=== PATIENT | male | born 1995 | race Caucasian/White ===

== ENCOUNTER 2020-03-04 12:11 | Emergency (ER) | payer MEDICAID, SELFPAY ==
[2020-03-04 12:18] VITALS: BP 139/71; PULSE 62; RESP 18; TEMP 36.7; O2SAT 99; BMI 29.2
== END 2020-03-04 14:13 | disposition left against medical advice (07) ==
PROVIDERS: Emergency Provider Emergency Medicine; PCP Internal Medicine
DX: M25.579 Pain in unspecified ankle and joints of unspecified foot (principal)
CPT/HCPCS: 99281; 99282

== ENCOUNTER 2020-05-14 16:25 | Emergency (ER) | payer MEDICAID, SELFPAY ==
--- NOTE | 2020-05-14 | ECG_ITS ---
Test Reason : DIZNESS Blood Pressure : / mmHG Vent. Rate : 096 BPM Atrial Rate : 096 BPM P-R Int : 148 ms QRS Dur : 074 ms QT Int : 346 ms P-R-T Axes : 071 039 053 degrees QTc Int : 437 ms Normal sinus rhythm Normal ECG No previous ECGs available Referred By: Ishmael Tay Electronically Signed By:BIENVENIDO LEVINE
[2020-05-14 16:45] VITALS: BP 144/67; PULSE 105; RESP 20; TEMP 36.6; O2SAT 97
[2020-05-14 17:47] VITALS: BMI 38.3
--- NOTE | 2020-05-14 17:58 | ED_ITS ---
HPI - General Adult General Chief complaint: Dizziness Stated complaint: dizziness Time Seen by Provider: 05/14/20 17:52 Source: patient Mode of arrival: ambulatory Limitations: no limitations History of Present Illness HPI narrative: Patient with multiple complaints poor sleep in the night feels dizzy when he stands up asking for STD testing used to be taking sertraline in the past but not taking anymore Related Data Previous Rx's Medication Instructions Recorded lorazepam [Ativan] 0.5 mg PO BEDTIME PRN #7 tab 05/14/20 Allergies Allergy/AdvReac Type Severity Reaction Status Date / Time Sulfa (Sulfonamide Allergy Mild HIVES Unverified 11/12/19 19:43 Antibiotics) [SULFA (SULFONAMIDE ANTIBIOTICS)] NSAIDS (Non-Steroidal AdvReac Intermediate AFFECTS Unverified 11/12/19 19:43 Anti-Inflamma LIVER [NSAIDS (NON-STEROIDAL ENZYMES ANTI-INFLAMMA] Review of Systems Review of Systems: Constitutional : No Weight loss, No Fever, No Chills ENT/Mouth : No sore throat, No Rhinorrhea Eyes: No Eye Pain, No Swelling Cardiovascular : No Chest Pain, no palpitations Respiratory : No Cough, No Sputum, no shortness of breath Gastrointestinal : no Nausea, No Vomiting, No Diarrhea, No abdominal Pain, no black stools Genitourinary : No Dysuria, No Urinary Frequency Musculoskeletal : No joint pain, No Myalgias, No Joint Swelling Skin : No Skin Lesions, No rash Neuro : No Weakness, No Numbness, + Dizziness, No Headache Psych : +Anxiety/Panic, No Depression Heme/Lymph: No Bruising, No Lymphadenopathy Endocrine : No Polyuria, No Polydipsia All other systems reviewed and are negative [facility] Past Medical History Medical History Appendicitis Mandibular fracture No known health problems Social History Social History Advance Directives: No Advance Directives Information Provided: No Physical Exam Vital Signs: Vital Signs: Last Vital Signs Temp 97.9 F 05/14/20 16:45 Pulse 105 H 05/14/20 16:45 Resp 20 05/14/20 16:45 BP 144/67 H 05/14/20 16:45 Pulse Ox 97 05/14/20 16:45 Body Mass Index 38.3 Appearance: Alert. Oriented X3. No acute distress. Eyes: Pupils equal, round and reactive to light. ENT: Pharynx normal. Neck: Normal inspection. Neck supple. CVS: Normal heart rate and rhythm. Pulses normal. Respiratory: No respiratory distress. Breath sounds normal. Abdomen: Soft and nontender. Bowel sounds are present, no mass palpable, no CVA tenderness Skin: Skin warm and dry. Normal skin color. Normal skin turgor. Extremities: No lower extremity edema. Neuro: Oriented X 3. No motor deficit. No sensory deficit. Medical Decision Making MDM Narrative Medical decision making narrative: Patient symptoms nonspecific likely with anxiety normal orthostatic, will discharge patient home Discharge Plan Discharge Clinical Impression: Weakness, Anxiety Patient Disposition: Home, Self-Care Instructions: Anxiety (ED) Prescriptions: New lorazepam [Ativan] 0.5 mg tablet 0.5 mg PO BEDTIME PRN (Reason: anxiety) Qty: 7 RF: 0
[2020-05-14 19:02] VITALS: BP 127/57; PULSE 69
[2020-05-14 19:03] VITALS: BP 128/87; BP 142/65; PULSE 72; PULSE 89; O2SAT 98
[2020-05-15 09:06] LABS: CT PCR NOT DETECTED (Not Detect.); NG PCR NOT DETECTED (Not Detect.)
== END 2020-05-14 19:11 | disposition home or self-care (01) ==
PROVIDERS: Emergency Provider Internal Medicine
DX: R42 Dizziness and giddiness (principal); R53.1 Weakness; F41.9 Anxiety disorder, unspecified; Z11.3 Encounter for screening for infections with a predominantly sexual mode of transmission
CPT/HCPCS: 87491; 87591; 93005; 99282; 99284

== ENCOUNTER 2020-05-24 08:39 | Emergency (ER) | payer MEDICAID, SELFPAY ==
--- NOTE | ~2020-05-24 | CT_ITS ---
EXAMINATION: CT HEAD WITHOUT CONTRAST CLINICAL INFORMATION: Dizziness. History of Covid inflammation COMPARISON: None TECHNIQUE: Contiguous axial imaging was performed from the skull base to vertex without intravenous administration of contrast. This CT examination was performed using dose optimization techniques as appropriate, variously including the following: *Automated exposure control *Adjustment of mA and/or kV according to patient size (this includes techniques or standardized protocols for targeted exams where dose is matched to indication/reason for exam; i.e. extremities or head) *Use of iterative reconstruction technique DLP: 1563 mGy-cm FINDINGS: There is no evidence of acute intracranial hemorrhage or territorial infarction. No abnormal mass effect or midline shift is seen. Douglas to white matter differentiation is well preserved. No extra-axial fluid collections are identified. The ventricles are normal in size. There is no abnormal attenuation within the brain parenchyma. The osseous structures and soft tissues are normal. The mastoid air cells and visualized portions of the paranasal sinuses are well aerated. CT/CT head/brain wo con IMPRESSION: No acute intracranial process seen.
[2020-05-24 09:07] VITALS: BP 134/61; PULSE 69; RESP 14; TEMP 36.6; O2SAT 99; BMI 31.3
[2020-05-24 10:28] VITALS: BP 145/68; PULSE 55; RESP 16; O2SAT 99
[2020-05-24 10:40] VITALS: BP 146/74; PULSE 64
[2020-05-24 10:41] VITALS: BP 137/84; PULSE 57
[2020-05-24 10:42] VITALS: BP 145/83; PULSE 57
--- NOTE | 2020-05-24 10:56 | ED.DIZZY ---
HPI - Dizziness General Chief Complaint: Dizziness Stated Complaint: dizzy spells Time Seen by Provider: 05/24/20 10:34 Source: patient Mode of arrival: ambulatory Limitations: no limitations History of Present Illness HPI Narrative: 24 y/o male with history of COVID-19 at the end of March presents to the ED with recurrent dizzy spells upon standing for the last 1 month. He states since he recovered from COVID he has had these lightheaded episodes when he goes from sitting to standing. He states when it happens he occasionally feels chest tightness and palpitations and he gets anxious. His symptoms resolve after a few seconds with rest. He also reports increased nasal discharge and sinus pressure with post-nasal drip. No ear pain. No weakness, numbness or tingling. He admits these ongoing symptoms are causing him anxiety and depression. MD elicited complaint: lightheadedness Pertinent past history: other (recent COVID) Onset (ago): month(s) (1) Timing: sudden onset, intermittent and episodic Severity: moderate Description: lightheadedness Context: change in body position History of similar symptoms: Yes Exacerbating factors: movement/ambulation and change in body position Relieving factors: rest and lying down Associated symptoms: nasal congestion Related Data Previous Rx's Medication Instructions Recorded lorazepam [Ativan] 0.5 mg PO BEDTIME PRN #7 tab 05/14/20 amoxicillin-pot clavulanate 1 tab PO BID #14 tab 05/24/20 [Augmentin] Allergies Allergy/AdvReac Type Severity Reaction Status Date / Time Sulfa (Sulfonamide Allergy Mild HIVES Unverified 11/12/19 19:43 Antibiotics) [SULFA (SULFONAMIDE ANTIBIOTICS)] NSAIDS (Non-Steroidal AdvReac Intermediate AFFECTS Unverified 11/12/19 19:43 Anti-Inflamma LIVER [NSAIDS (NON-STEROIDAL ENZYMES ANTI-INFLAMMA] Review of Systems Review of Systems: Constitutional: No Fever, No Chills ENT/Mouth: No sore throat, + Rhinorrhea, No Swallowing Difficulty Eyes: No Eye Pain, No Swelling, No Redness Cardiovascular: + Chest tightness, No SOB, No Orthopnea, No Edema Respiratory: No Cough, No Sputum, No Wheezing, No dyspnea Gastrointestinal: No Nausea, No Vomiting, No Diarrhea, No abdominal Pain, No Hematochezia, No Melena Genitourinary: No Dysuria, No Urinary Frequency, No Hematuria Musculoskeletal: No joint pain, No Myalgias Skin: No Skin Lesions, No rash Neuro: No Weakness, No Numbness, + Dizziness, No Headache Psych: + Anxiety/Panic, + Depression Heme/Lymph: No Bruising, No Lymphadenopathy Endocrine: No Polyuria, No Polydipsia PMF Past Medical History Medical History Appendicitis Mandibular fracture No known health problems Social History Social History Smoked in Last 30 Days: No Use of substances other than those prescribed or required for medical reasons: No Advance Directives: Yes Advance Directives Information Provided: Yes Advance Directives on File: No Physical Exam Vital Signs: Vital Signs: Last Vital Signs Temp 98 F 05/24/20 09:07 Pulse 57 05/24/20 10:42 Resp 16 05/24/20 10:28 BP 145/83 H 05/24/20 10:42 Pulse Ox 99 05/24/20 10:28 Body Mass Index 31.3 Appearance: Alert. Oriented X3. No acute distress. Eyes: Pupils equal, round and reactive to light. EOMI, no nystagmus. ENT: Pharynx normal. Neck: Normal inspection. Neck supple. CVS: Normal heart rate and rhythm. Pulses normal. Respiratory: No respiratory distress. Breath sounds normal. Abdomen: Soft and nontender. +BS x4 Skin: Skin warm and dry. Normal skin color. Normal skin turgor. No rashes. Extremities: No lower extremity edema. Negative Stephanie's sign. Neuro: Oriented X 3. No motor deficit. No sensory deficit. Steady gait. Strength equal and symmetrical throughout, normal finger to nose and heel to avilez Course Course Course Narrative: 24 y/o male with recent COVID-19 1 month ago presenting with episodic lightheadedness and dizziness that have been happening since. He also reports symptoms of sinusitis. TMs are normal. Does not sound consistent with vertigo. He has a non-focal neuro examination with NIH of 0. Given recent COVID will obtain CT head, doubt CVA. will get orthostatic vitals and basic lab workup. Reevaluation(s) Reevaluation #1: Workup is negative. Orthostatics negative. He continues to be appear well, be symptom free here. There is a question whether this is exacerbated by acute sinusitis so will treat with PO abx and refer to ENT. This also could be due to effects of COVID-19. Etiology unclear. Will have him follow up with Neurology if symptoms persist. Stable for discharge from the ER at this time. MDM - Dizziness Differential Diagnosis Differential diagnosis: Likely adverse reaction to drug, benign paroxysmal positional vertigo, orthostatic hypotension, vertebral basilar insufficiency, cerebrovascular accident, acute vestibular neuronitis and transient cerebral ischemia Medical Records Attestation: I reviewed the patient's medical records. Lab Data Attestation: I reviewed the patient's lab results. Result diagrams: 05/24/20 10:57 05/24/20 10:57 Labs: Lab Results 05/24/20 05/24/20 05/24/20 Range/Units 10:57 10:57 11:46 WBC 6.1 (4.8-10.8) X10*3/uL RBC 5.62 (4.60-5.80) X10*6/uL Hgb 17.1 (14.0-18.0) g/dl Hct 50.2 (42-52) % MCV 89.3 (80-98) fL MCH 30.4 (27.0-33.0) pg MCHC 34.1 (31.0-36.0) g/dl RDW 12.0 (11.0-16.0) % Plt Count 248 (160-400) X10*3/uL MPV 8.9 L (9.4-12.4) fL Immature Gran % (Auto) 0.3 (0.0-0.4) % Neut % (Auto) 47.5 (45-73) % Lymph % (Auto) 39.8 (20-40) % [place] % (Auto) 9.6 (2-11) % Eos % (Auto) 2.0 (0-4) % Baso % (Auto) 0.8 (0-2) % Lymph # (Auto) 2.4 (1.2-4.9) X10*3/uL [place] # (Auto) 0.6 (0.1-1.2) X10*3/uL Eos # (Auto) 0.1 (0.0-0.4) X10*3/uL Baso # (Auto) 0.1 (0.0-0.2) X10*3/uL Abs Immat Gran (auto) 0.02 (0.00-0.03) X10*3/uL Absolute Neuts (auto) 2.9 (2.0-8.3) X10*3/uL Absolute Nucleated RBC 0.000 (0.0-0.012) X10*3/uL Nucleated RBC % (auto) 0.0 (0.0-0.2) /100WBC Sodium 139 (135-145) mmol/L Potassium 4.1 (3.3-5.1) mmol/L Chloride 103 (96-108) mmol/L Carbon Dioxide 25 (22-29) mmol/L Anion Gap 15 (12-20) BUN 12 (9-16) mg/dL Creatinine 1.12 (0.5-1.4) mg/dL Estim Creat Clear Calc 122.5 Estimated GFR > 60 Random Glucose 81 (60-115) mg/dL Calcium 9.7 (8.4-10.2) mg/dL Magnesium 2.1 (1.6-2.6) mg/dL Total Bilirubin 0.9 (0.0-1.0) mg/dL Direct Bilirubin 0.3 (0.0-0.5) mg/dL AST 32 (5-37) U/L ALT 29 (0-40) U/L Alkaline Phosphatase 53 (39-117) U/L Total Protein 8.1 H (6.5-8.0) g/dL Albumin 4.9 (3.5-5.0) g/dL Urine Opiates Screen Not Detected (Not Detect) Ur Barbiturates Screen Not Detected (Not Detect) Ur Phencyclidine Scrn Not Detected (Not Detect) Ur Amphetamines Screen Not Detected (Not Detect) U Benzodiazepines Scrn Not Detected (Not Detect) Urine Cocaine Screen Not Detected (Not Detect) U Marijuana (THC) Screen Not Detected (Not Detect) Critical Care Time Critical Care Time Critical Care Time: No Discharge Plan Discharge Clinical Impression: Dizziness Sinusitis Qualifiers: Sinusitis location: maxillary Chronicity: acute Recurrence: non-recurrent Qualified Code(s): J01.00 - Acute maxillary sinusitis, unspecified Patient Disposition: Home, Self-Care Instructions: Sinusitis (ED), Lightheadedness (ED) Additional Instructions: Your workup today in the ER was normal. Your blood work and CT scan were normal. You are being treated for possible sinus infection. Continue to use Flonase. Rest and stay hydrated, drink plenty of water. When you change positions, do so slow to help decrease your lightheadness. Recommend following up with ENT doctor. Recommend following up with your Primary Care doctor. If you have persisting lightheadedness follow up with the Neurology doctor. Prescriptions: New amoxicillin-pot clavulanate [Augmentin] 875-125 mg tablet 1 tab PO BID Qty: 14 RF: 0 No Action lorazepam [Ativan] 0.5 mg tablet 0.5 mg PO BEDTIME PRN (Reason: anxiety) Qty: 7 RF: 0 Referrals: Alicia Varner MD [Physician] - 1 week (chronic dizziness post COVID) Edouard Martinez [Physician] - 2 days Discharge Date/Time: 05/24/20 12:29
[2020-05-24 11:18] LABS: MANUAL DIFF FLAG NO
[2020-05-24 11:30] LABS: Basophils Absolute Auto 0.1 X10*3/uL (0.0-0.2); Basophils Percent Auto 0.8 % (0-2); Eosinophils Absolute Auto 0.1 X10*3/uL (0.0-0.4); Hematocrit 50.2 % (42-52); Hemoglobin 17.1 g/dl (14.0-18.0); Imm Gran Abs Auto 0.02 X10*3/uL (0.00-0.03); Imm Gran Pct Auto 0.3 % (0.0-0.4); Lymphocytes Absolute Auto 2.4 X10*3/uL (1.2-4.9); Lymphocytes Percent Auto 39.8 % (20-40); Mean Corpuscular HGB Conc 34.1 g/dl (31.0-36.0); Mean Corpuscular Hemoglobin 30.4 pg (27.0-33.0); Mean Corpuscular Volume 89.3 fL (80-98); Mean Platelet Volume 8.9 fL (9.4-12.4); Monocytes Absolute Auto 0.6 X10*3/uL (0.1-1.2); Monocytes Percent Auto 9.6 % (2-11); Neutrophils Absolute Auto 2.9 X10*3/uL (2.0-8.3); Neutrophils Percent Auto 47.5 % (45-73); Platelet Count 248 X10*3/uL (160-400); Red Blood Count 5.62 X10*6/uL (4.60-5.80); White Blood Count 6.1 X10*3/uL (4.8-10.8)
[2020-05-24 11:41] LABS: Alanine Aminotransferase 29 U/L (0-40); Albumin Level 4.9 g/dL (3.5-5.0); Alkaline Phosphatase 53 U/L (39-117); Anion Gap 15 (12-20); Aspartate Amino Transferase 32 U/L (5-37); Bilirubin Direct 0.3 mg/dL (0.0-0.5); Bilirubin Total 0.9 mg/dL (0.0-1.0); Blood Urea Nitrogen 12 mg/dL (9-16); Calcium 9.7 mg/dL (8.4-10.2); Carbon Dioxide 25 mmol/L (22-29); Chloride 103 mmol/L (96-108); Creatinine Clr Calc Pharmacy 122.5; Estimated Glomerular Filt Rate > 60; Glucose Random 81 mg/dL (60-115); Magnesium 2.1 mg/dL (1.6-2.6); Potassium 4.1 mmol/L (3.3-5.1); Sodium 139 mmol/L (135-145); Total Protein 8.1 g/dL (6.5-8.0)
[2020-05-24 12:22] LABS: Amphetamine Screen Urine Not Detected (Not Detect); Barbiturates, Urine Not Detected (Not Detect); Benzodiazepines Screen Urine Not Detected (Not Detect); Cannabinoid Screen Urine Not Detected (Not Detect); Cocaine Screen Urine Not Detected (Not Detect); Opiate Screen Urine Not Detected (Not Detect); Phencyclidine Screen Urine Not Detected (Not Detect)
== END 2020-05-24 12:29 | disposition home or self-care (01) ==
PROVIDERS: Physician Assistant; Emergency Provider Emergency Medicine; PCP Internal Medicine
DX: J01.00 Acute maxillary sinusitis, unspecified (principal); R42 Dizziness and giddiness; Z79.899 Other long term (current) drug therapy; Z86.16 Personal history of COVID-19
CPT/HCPCS: 36415; 70450; 80048; 80076; 80307; 83735; 85025; 99284

== ENCOUNTER 2020-06-26 08:16 | Emergency (ER) | payer MEDICAID, SELFPAY ==
[2020-06-26 08:30] VITALS: BP 127/77; PULSE 65; RESP 18; TEMP 36.9; O2SAT 100; BMI 30.8
--- NOTE | 2020-06-26 08:48 | ECG_ITS ---
Test Reason : CHECK CARDIAC STATUS Blood Pressure : / mmHG Vent. Rate : 051 BPM Atrial Rate : 051 BPM P-R Int : 134 ms QRS Dur : 080 ms QT Int : 408 ms P-R-T Axes : 016 017 021 degrees QTc Int : 376 ms Sinus bradycardia Otherwise normal ECG When compared with ECG of 14-MAY-2020 16:33, Vent. rate has decreased BY [address] elevation now present in Lateral leads QT has shortened Referred By: Gwyn Raymond Electronically Signed By:KERWIN ARNDT MD
--- NOTE | 2020-06-26 08:49 | ED.GENADULT ---
HPI - General Adult General Chief complaint: General Medical Stated complaint: confused,sob Time Seen by Provider: 06/26/20 08:47 Source: patient Mode of arrival: ambulatory Limitations: no limitations History of Present Illness HPI narrative: 24-year-old male walked into ED for evaluation for shortness of breath, generalized weakness,. Of confusion. 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 Patient otherwise declined fever, coughing. Related Data Previous Rx's Medication Instructions Recorded lorazepam [Ativan] 0.5 mg PO BEDTIME PRN #7 tab 05/14/20 amoxicillin-pot clavulanate 1 tab PO BID #14 tab 05/24/20 [Augmentin] Allergies Allergy/AdvReac Type Severity Reaction Status Date / Time Sulfa (Sulfonamide Allergy Mild HIVES Unverified 11/12/19 19:43 Antibiotics) [SULFA (SULFONAMIDE ANTIBIOTICS)] NSAIDS (Non-Steroidal AdvReac Intermediate AFFECTS Unverified 11/12/19 19:43 Anti-Inflamma LIVER [NSAIDS (NON-STEROIDAL ENZYMES ANTI-INFLAMMA] Review of Systems Review of Systems: All other systems are reviewed and are negative Constitutional: Reports as per HPI and Reports no additional constitutional complaints Eyes: Reports as per HPI and Reports no additional eye complaints Reports system reviewed and no additional complaints, except as documented Cardiovascular: Reports as per HPI and Reports no additional cardiovascular complaints Respiratory: Reports as per HPI and Reports no additional respiratory complaints Gastrointestinal: Reports as per HPI and Reports no additional gastrointestinal complaints Genitourinary: Reports no additional female genitourinary complaints Musculoskeletal: Reports no additional musculoskeletal complaints Skin/Breast: Reports system reviewed and no additional complaints, except as docu Psychiatric: Reports no additional psychiatric complaints Endocrine: Reports no additional endocrine complaints Hematologic/Lymphatic: Reports no additional hematologic/lymphatic complaints Allergic/Immunologic: Reports no additional allergic/immunologic complaints Reports system reviewed and no additional complaints, except as documented and Reports Abnormal speech present [facility] Past Medical History Medical History Appendicitis Mandibular fracture No known health problems Social History Social History Alcohol intake: former Smoking Status: Former smoker Use of substances other than those prescribed or required for medical reasons: No Advance Directives: No Advance Directives Information Provided: No Physical Exam Vital Signs: Vital Signs: Last Vital Signs Temp 97.7 F 06/26/20 11:28 Pulse 58 06/26/20 11:28 Resp 17 06/26/20 11:28 BP 125/62 06/26/20 11:28 Pulse Ox 100 06/26/20 11:28 Body Mass Index 30.8 Vital signs have been reviewed as appeared to be correct. Blood pressure normal. Heart rate normal. Respiration rate normal. Temperature normal. Oxygen saturation normal. Appearance: Alert. Oriented X3. No acute distress. Head: Normal external exam. Normocephalic. Atraumatic. No Garcia signs noted. No raccoon eyes noted Eyes: PERRLA. EOMI. Conjunctiva and sclera normal. Eyelids normal. ENT: TM's Normal. Pharynx normal. Uvula midline. Moist mucous membranes. No trismus noted. No drooling noted. No muffled voice noted. Neck: Normal inspection. Neck supple. FROM. No adenopathy. Thyroid Normal. No meningeal signs. No neck mass noted. CVS: Normal heart rate and rhythm. Heart sound normal. No murmurs noted. Pulses normal throughout. Respiratory: No respiratory distress. Painless inspiration. Breath sounds normal. No wheezes/rales/rhonchi noted. Chest nontender. No accessory muscle usage noted or decreased air movement noted. Abdomen: Soft and nontender. Bowel sounds normal in all 4 quadrants. No distention noted. No organomegaly noted. No visible injury noted. Back: No CVA tenderness. Full range of motion noted. Skin: Skin warm and dry. Normal skin color. Normal skin turgor. No rashes/lesions/lacerations noted. Extremities: No lower extremity edema. Extremities exhibit normal range of motion. Extremities nontender. Neuro: Oriented X 3. No motor deficit. No sensory deficit. Reflexes normal. Course Course Course Narrative: Assessment and plan. 24-year-old male came in with nonspecific generalized weakness, labs/physical exam is unremarkable for abnormalities. Patient was reassured and instructed to follow-up with PCP. Medical Decision Making Lab Data Lab results reviewed: Yes I reviewed the patient's lab results. Result diagrams: 06/26/20 09:24 06/26/20 09:24 Labs: Lab Results 06/26/20 06/26/20 06/26/20 Range/Units 09:24 09:24 09:24 WBC 4.7 L (4.8-10.8) X10*3/uL RBC 5.52 (4.60-5.80) X10*6/uL Hgb 16.8 (14.0-18.0) g/dl Hct 49.5 (42-52) % MCV 89.7 (80-98) fL MCH 30.4 (27.0-33.0) pg MCHC 33.9 (31.0-36.0) g/dl RDW 11.7 (11.0-16.0) % Plt Count 221 (160-400) X10*3/uL MPV 8.6 L (9.4-12.4) fL Immature Gran % (Auto) 0.6 H (0.0-0.4) % Neut % (Auto) 41.9 L (45-73) % Lymph % (Auto) 40.7 H (20-40) % [place] % (Auto) 12.0 H (2-11) % Eos % (Auto) 4.2 H (0-4) % Baso % (Auto) 0.6 (0-2) % Lymph # (Auto) 1.9 (1.2-4.9) X10*3/uL [place] # (Auto) 0.6 (0.1-1.2) X10*3/uL Eos # (Auto) 0.2 (0.0-0.4) X10*3/uL Baso # (Auto) 0.0 (0.0-0.2) X10*3/uL Abs Immat Gran (auto) 0.03 (0.00-0.03) X10*3/uL Absolute Neuts (auto) 2.0 (2.0-8.3) X10*3/uL Absolute Nucleated RBC 0.000 (0.0-0.012) X10*3/uL Nucleated RBC % (auto) 0.0 (0.0-0.2) /100WBC D-Dimer < 200 NG/ML Sodium 141 (135-145) mmol/L Potassium 4.5 (3.3-5.1) mmol/L Chloride 104 (96-108) mmol/L Carbon Dioxide 31 H (22-29) mmol/L Anion Gap 11 L (12-20) BUN 10 (9-16) mg/dL Creatinine 1.05 (0.5-1.4) mg/dL Estim Creat Clear Calc 133.4 Estimated GFR > 60 Random Glucose 96 (60-115) mg/dL Calcium 9.9 (8.4-10.2) mg/dL Total Bilirubin (0.0-1.0) mg/dL Direct Bilirubin (0.0-0.5) mg/dL AST (5-37) U/L ALT (0-40) U/L Alkaline Phosphatase (39-117) U/L Troponin I High Sens (<3.5-35.0) ng/L B-Natriuretic Peptide (<100) pg/mL Total Protein (6.5-8.0) g/dL Albumin (3.5-5.0) g/dL Lipase (8-78) U/L Urine Color Urine Appearance Urine pH (5.0-8.0) Ur Specific [place] (1.005-1.025) Urine Protein (NEG-TRACE) MG/DL Urine Glucose (UA) (NEG) MG/DL Urine Ketones (NEG) MG/DL Urine Blood (NEG) Urine Nitrite (NEG) Ur Leukocyte Esterase (NEG) 06/26/20 06/26/20 06/26/20 Range/Units 09:24 09:24 09:27 WBC (4.8-10.8) X10*3/uL RBC (4.60-5.80) X10*6/uL Hgb (14.0-18.0) g/dl Hct (42-52) % MCV (80-98) fL MCH (27.0-33.0) pg MCHC (31.0-36.0) g/dl RDW (11.0-16.0) % Plt Count (160-400) X10*3/uL MPV (9.4-12.4) fL Immature Gran % (Auto) (0.0-0.4) % Neut % (Auto) (45-73) % Lymph % (Auto) (20-40) % [place] % (Auto) (2-11) % Eos % (Auto) (0-4) % Baso % (Auto) (0-2) % Lymph # (Auto) (1.2-4.9) X10*3/uL [place] # (Auto) (0.1-1.2) X10*3/uL Eos # (Auto) (0.0-0.4) X10*3/uL Baso # (Auto) (0.0-0.2) X10*3/uL Abs Immat Gran (auto) (0.00-0.03) X10*3/uL Absolute Neuts (auto) (2.0-8.3) X10*3/uL Absolute Nucleated RBC (0.0-0.012) X10*3/uL Nucleated RBC % (auto) (0.0-0.2) /100WBC D-Dimer NG/ML Sodium (135-145) mmol/L Potassium (3.3-5.1) mmol/L Chloride (96-108) mmol/L Carbon Dioxide (22-29) mmol/L Anion Gap (12-20) BUN (9-16) mg/dL Creatinine (0.5-1.4) mg/dL Estim Creat Clear Calc Estimated GFR Random Glucose (60-115) mg/dL Calcium (8.4-10.2) mg/dL Total Bilirubin 0.6 (0.0-1.0) mg/dL Direct Bilirubin 0.2 (0.0-0.5) mg/dL AST 29 (5-37) U/L ALT 39 (0-40) U/L Alkaline Phosphatase 55 (39-117) U/L Troponin I High Sens < 3.5 (<3.5-35.0) ng/L B-Natriuretic Peptide < 10 (<100) pg/mL Total Protein 7.4 (6.5-8.0) g/dL Albumin 4.7 (3.5-5.0) g/dL Lipase 32 (8-78) U/L Urine Color YELLOW Urine Appearance CLEAR Urine pH 6.0 (5.0-8.0) Ur Specific [place] 1.010 (1.005-1.025) Urine Protein NEG (NEG-TRACE) MG/DL Urine Glucose (UA) NEG (NEG) MG/DL Urine Ketones NEG (NEG) MG/DL Urine Blood NEG (NEG) Urine Nitrite NEG (NEG) Ur Leukocyte Esterase NEG (NEG) Discharge Plan Discharge Clinical Impression: Generalized weakness Patient Disposition: Home, Self-Care Instructions: Weakness (ED) Prescriptions: No Action lorazepam [Ativan] 0.5 mg tablet 0.5 mg PO BEDTIME PRN (Reason: anxiety) Qty: 7 RF: 0 amoxicillin-pot clavulanate [Augmentin] 875-125 mg tablet 1 tab PO BID Qty: 14 RF: 0 Referrals: Jair Pavon MD [Primary Care Provider] - 2 days Stand Alone Forms: Work/School Release
[2020-06-26 09:31] LABS: MANUAL DIFF FLAG NO
[2020-06-26 09:32] LABS: Basophils Percent Auto 0.6 % (0-2); Eosinophils Absolute Auto 0.2 X10*3/uL (0.0-0.4); Eosinophils Percent Auto 4.2 % (0-4); Hematocrit 49.5 % (42-52); Hemoglobin 16.8 g/dl (14.0-18.0); Imm Gran Abs Auto 0.03 X10*3/uL (0.00-0.03); Imm Gran Pct Auto 0.6 % (0.0-0.4); Lymphocytes Absolute Auto 1.9 X10*3/uL (1.2-4.9); Lymphocytes Percent Auto 40.7 % (20-40); Mean Corpuscular HGB Conc 33.9 g/dl (31.0-36.0); Mean Corpuscular Hemoglobin 30.4 pg (27.0-33.0); Mean Corpuscular Volume 89.7 fL (80-98); Mean Platelet Volume 8.6 fL (9.4-12.4); Monocytes Absolute Auto 0.6 X10*3/uL (0.1-1.2); Neutrophils Percent Auto 41.9 % (45-73); Platelet Count 221 X10*3/uL (160-400); Red Blood Count 5.52 X10*6/uL (4.60-5.80); Red Cell Distribution Width 11.7 % (11.0-16.0); White Blood Count 4.7 X10*3/uL (4.8-10.8)
[2020-06-26 09:34] LABS: Glucose Urine UA NEG (NEG); Leukocyte Esterase Urine NEG (NEG); Nitrite Urine NEG (NEG); Urine Blood NEG (NEG); Urine Ketones NEG (NEG); Urine Protein NEG (NEG-TRACE)
[2020-06-26 09:41] LABS: Appearance Urine CLEAR; Color Urine YELLOW
[2020-06-26 09:47] LABS: D Dimer < 200 NG/ML
[2020-06-26 09:55] LABS: Anion Gap 11 (12-20); Blood Urea Nitrogen 10 mg/dL (9-16); Calcium 9.9 mg/dL (8.4-10.2); Carbon Dioxide 31 mmol/L (22-29); Chloride 104 mmol/L (96-108); Creatinine Clr Calc Pharmacy 133.4; Estimated Glomerular Filt Rate > 60; Glucose Random 96 mg/dL (60-115); Potassium 4.5 mmol/L (3.3-5.1); Sodium 141 mmol/L (135-145)
[2020-06-26 09:56] LABS: Alanine Aminotransferase 39 U/L (0-40); Albumin Level 4.7 g/dL (3.5-5.0); Alkaline Phosphatase 55 U/L (39-117); Aspartate Amino Transferase 29 U/L (5-37); Bilirubin Direct 0.2 mg/dL (0.0-0.5); Bilirubin Total 0.6 mg/dL (0.0-1.0); Lipase 32 U/L (8-78); Total Protein 7.4 g/dL (6.5-8.0)
[2020-06-26 10:01] LABS: B Type Natriuretic Peptide < 10 pg/mL (<100); Troponin-I High Sensitivity < 3.5 ng/L (<3.5-35.0)
[2020-06-26 11:28] VITALS: BP 125/62; PULSE 58; RESP 17; TEMP 36.5; O2SAT 100
== END 2020-06-26 12:34 | disposition home or self-care (01) ==
PROVIDERS: Emergency Provider Emergency Medicine; PCP Internal Medicine
DX: R53.1 Weakness (principal); Z86.16 Personal history of COVID-19
CPT/HCPCS: 36415; 80048; 80076; 81003; 83690; 83880; 84484; 85025; 85379; 93005; 99283; 99284

== ENCOUNTER 2021-05-23 18:08 | Emergency (ER) | payer MEDICAID, SELFPAY | END 2021-05-23 19:59 | disposition left against medical advice (07) | PROVIDERS: Emergency Provider Emergency Medicine | DX: R42 Dizziness and giddiness (principal); H53.8 Other visual disturbances ==

== ENCOUNTER 2021-05-28 01:54 | Emergency (ER) | payer MEDICAID, SELFPAY ==
--- NOTE | ~2021-05-28 | XR_ITS ---
EXAMINATION: XR ABDOMEN KUB CLINICAL INDICATION: No bowel movement for 3 days COMPARISON: None TECHNIQUE: AP view of the abdomen. FINDINGS: The bowel gas pattern is normal with no evidence of ileus or obstruction. Stool present within the left colon. Transverse and descending colon contain gas without distention. No unusual soft tissue calcifications are noted. The bones are unremarkable. XR/XR KUB IMPRESSION: No evidence of obstruction. Mild constipation.
[2021-05-28 02:03] VITALS: BP 126/86; PULSE 74; RESP 15; TEMP 37; O2SAT 97; BMI 34.8
--- NOTE | 2021-05-28 03:42 | ED.GENADULT ---
HPI - General Adult General Chief complaint: Abdominal Pain Stated complaint: dizziness; unable to defacate x3days Time Seen by Provider: 05/28/21 02:11 Source: patient Mode of arrival: ambulatory History of Present Illness HPI narrative: 25-year-old male without significant past medical history presents with 3 days of inability to have a bowel movement and say that he has felt ?foggy?. 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 Patient did try Mag citrate today with some mild response but still feels constipated. Related Data Home Medications Medication Instructions Recorded Confirmed omeprazole 20 mg capsule,delayed 1 cap PO QAM 05/28/21 05/28/21 release Allergies Allergy/AdvReac Type Severity Reaction Status Date / Time Sulfa (Sulfonamide Allergy Mild HIVES Verified 05/28/21 02:01 Antibiotics) [SULFA (SULFONAMIDE ANTIBIOTICS)] NSAIDS (Non-Steroidal AdvReac Intermediate AFFECTS Verified 05/28/21 02:01 Anti-Inflamma LIVER [NSAIDS (NON-STEROIDAL ENZYMES ANTI-INFLAMMA] Review of Systems Review of Systems: Pertinent positives and negatives as stated in HPI 10 point review of symptoms is otherwise negative PMFSH Past Medical History Source: nursing notes reviewed Medical History Appendicitis Mandibular fracture No known health problems Social History Social History Alcohol intake: former Advance Directives: No Physical Exam ED Vital Signs: Vital Signs - 24 hr 05/28/21 02:03 Temperature 98.6 F Pulse Rate 74 Respiratory Rate 15 Blood Pressure 126/86 Pulse Oximetry 97 BMI result Body Mass Index 34.8 VITAL SIGNS: Reviewed. GENERAL: Well developed, well nourished, in no acute distress. HEAD: Normocephalic/atraumatic EYES: PERRLA, EOMI EARS: Ext canals without abnormality OROPHARYNX: no oral lesions noted, posterior pharynx clear LUNGS: Normal breath sounds. No adventitious sounds or accessory muscle use. SpO2<97> CARDIOVASCULAR: Regular rate and rhythm without noted murmurs ABDOMEN: Soft, non-tender, non-distended with bowel sounds. MUSCULOSKELETAL: No tenderness, deformities, or effusions noted on gross inspection. EXTREMITIES: No cyanosis, clubbing or edema. SKIN: Inspection of the skin reveals no rashes NEUROLOGIC: Alert and oriented x 4. Strength and sensation to light touch were grossly intact x 4. Course Course Course Narrative: 25-year-old male with history and clinical presentation consistent with stress, constipation and no concerning symptoms for infection, anemia in an otherwise healthy male. Discussed bowel regimen with the patient, he acknowledges understanding and understands to return by Saturday if he has been unsuccessful and having regular bowel movements. Discharge Plan Discharge Clinical Impression: Constipation Patient Disposition: Home, Self-Care Instructions: High Fiber Diet (ED), Fleet Enema (ED), Constipation (ED) Additional Instructions: 1. Recommend increasing water intake. 2. Recommend another dose of Mag citrate today as well as MiraLax in the morning (this is available [id number]) and MiraLax again in the evening. Repeat this on Saturday as well if you have not started having regular bowel movements. 3. Recommend calling your primary care provider on Saturday morning as well. Return to the ER for worsening symptoms. Prescriptions: No Action omeprazole 20 mg capsule,delayed release(DR/EC) 1 cap PO QAM 0RF Referrals: Cecil Slater MD [Primary Care Provider] - 2 days
[2021-05-28 04:00] VITALS: BP 123/73; PULSE 61; RESP 16; O2SAT 96
== END 2021-05-28 04:22 | disposition home or self-care (01) ==
PROVIDERS: Emergency Provider Student in an Organized Health Care Education/Training Program; PCP Internal Medicine
DX: R10.9 Unspecified abdominal pain (principal); R42 Dizziness and giddiness; K59.00 Constipation, unspecified; Z79.899 Other long term (current) drug therapy
CPT/HCPCS: 74018; 99284

== ENCOUNTER 2021-08-17 00:46 | Emergency (ER) | payer MEDICAID, SELFPAY ==
[2021-08-17 00:57] VITALS: BP 135/83; PULSE 83; RESP 16; TEMP 36.4; O2SAT 97; BMI 33.5
--- NOTE | 2021-08-17 01:15 | ED_ITS ---
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 He states immediately after working in the brush he went home, showered and did not have any lesions on his legs. He woke up the next day with intense, itchy red rash on the front of both of his legs and his feet. He states the rash has been spitting up past his knees and is unbearably itchy. He has been using topical calamine lotion with no relief. No other lesions on any parts of the body. No fever or chills. No involvement of the palms, soles, mouth. MD complaint: rash Onset (ago): day(s) (3) Tetanus up to date: unsure Location: LLE, RLE, L foot and R foot Severity: moderate Severity scale (1-10): 5 Quality: pruritic Pain Consistency: intermittent Relieving factors: none Exacerbating factors: none Context: none Associated symptoms: itching Treatments prior to arrival: OTC topical medication Related Data Home Medications Medication Instructions Recorded Confirmed omeprazole 20 mg capsule,delayed 1 cap PO QAM 05/28/21 05/28/21 release Previous Rx's Medication Instructions Recorded prednisone 50 mg tablet 50 mg PO DAILY #7 tabs 08/17/21 Allergies Allergy/AdvReac Type Severity Reaction Status Date / Time Sulfa (Sulfonamide Allergy Mild HIVES Verified 08/17/21 00:56 Antibiotics) [SULFA (SULFONAMIDE ANTIBIOTICS)] NSAIDS (Non-Steroidal AdvReac Intermediate AFFECTS Verified 08/17/21 00:56 Anti-Inflamma LIVER [NSAIDS (NON-STEROIDAL ENZYMES ANTI-INFLAMMA] Review of Systems Review of Systems: Constitutional: No Fever, No Chills ENT/Mouth: No sore throat, No Swallowing Difficulty Eyes: No Swelling, No Redness Cardiovascular: No Chest Pain, No SOB Respiratory: No Cough, No Sputum, No Wheezing, No dyspnea Gastrointestinal: No Nausea, No Vomiting, No abdominal Pain Musculoskeletal: No joint pain, No Myalgias Skin: No Skin Lesions, + rash Psych: +Anxiety/Panic Heme/Lymph: No Bruising PMFSH Past Medical History Medical History Appendicitis Mandibular fracture No known health problems Social History Social History Alcohol intake: former Advance Directives: No Advance Directives Information Provided: Yes Physical Exam Vital Signs: Vital Signs: Last Vital Signs Temp 97.6 F 08/17/21 00:57 Pulse 83 08/17/21 00:57 Resp 16 08/17/21 00:57 BP 135/83 08/17/21 00:57 Pulse Ox 97 08/17/21 00:57 O2 Del Method 08/17/21 00:57 BMI result Body Mass Index 33.5 Appearance: Alert. Oriented X3. No acute distress. HEENT: normal inspection CVS: Normal heart rate and rhythm. Pulses normal. Respiratory: No respiratory distress. Skin: Skin warm and dry. Normal skin color. Normal skin turgor. Extremities: Bilateral lower extremities with scattered areas of erythematous, weeping, small little blister like lesions on the anterior lower legs, tops of the feet, and scattered areas of the distal thighs. No surrounding erythema, warmth, evidence of infection. Neuro: Oriented X 3. Grossly normal, nonfocal Course Course Course Narrative: 25-year-old male presents to the ER with a itchy, red rash to his bilateral lower legs after working in the [employer] 2 days ago. Exam is consistent with poison kaity dermatitis. Will prescribe oral steroids. We also discussed other measures to help with itching including oral antihistamines, topical Benadryl and hydrocortisone as well. He is stable for discharge home. Critical Care Time Critical Care Time Critical Care Time: No Discharge Plan Discharge Clinical Impression: Poison kaity dermatitis Patient Disposition: Home, Self-Care Instructions: Poison Kaity (ED) Additional Instructions: Take the prescribed steroid as directed, complete the entire course. Do your best not to itch the rash. For itchy can use [id number] hydrocortisone cream to the area as needed 2- 3 times per day. You can also try [id number] Benadryl spray as needed for itching. Recommend Benadryl orally 50 mg every 6-8 hours as needed for itching as well. This can make you drowsy. If you develop new or worsening symptoms call 911 or come back to the ER for further evaluation. Prescriptions: New prednisone 50 mg tablet 50 mg PO DAILY Qty: 7 0RF No Action omeprazole 20 mg capsule,delayed release(DR/EC) 1 cap PO QAM
[2021-08-17] MEDS: predniSONE 20 MG TABLET 60 MG PO (01:39)
== END 2021-08-17 01:45 | disposition home or self-care (01) ==
PROVIDERS: Emergency Provider Emergency Medicine Emergency Medical Services
DX: L23.7 Allergic contact dermatitis due to plants, except food (principal)
CPT/HCPCS: 99282; 99283

== ENCOUNTER 2022-02-04 22:14 | Emergency (ER) | payer MEDICAID, SELFPAY ==
[2022-02-04 22:16] VITALS: BP 140/76; PULSE 75; RESP 18; TEMP 36.3; O2SAT 98; BMI 34.8
== END 2022-02-05 01:38 | disposition left against medical advice (07) ==
PROVIDERS: Emergency Provider Emergency Medicine; PCP Nurse Practitioner Family
DX: R10.9 Unspecified abdominal pain (principal); R53.1 Weakness
CPT/HCPCS: 99281

== ENCOUNTER 2022-05-19 08:46 | Emergency (ER) | payer MEDICAID, SELFPAY ==
[2022-05-19 08:58] VITALS: BP 146/90; PULSE 85; RESP 18; TEMP 36.9; O2SAT 100; BMI 29.9
--- NOTE | 2022-05-19 09:28 | ED_ITS ---
HPI - Male Genitourinary General Chief complaint: Urogenital-Male Stated complaint: std check Time Seen by Provider: 05/19/22 09:13 History of Present Illness HPI Narrative: Patient with the complaint that he had unprotected sex with a woman and then a friend of her says she might have some kind of STD he is not sure what, he is not aware of her having any symptoms or known STD and he has no burning on urination no lesions no sores no dysuria and feels normal Related Data Home Medications Medication Instructions Recorded Confirmed omeprazole 20 mg capsule,delayed 1 cap PO QAM 05/28/21 05/28/21 release Previous Rx's Medication Instructions Recorded prednisone 50 mg tablet 50 mg PO DAILY #7 tabs 08/17/21 Allergies Allergy/AdvReac Type Severity Reaction Status Date / Time Sulfa (Sulfonamide Allergy Mild HIVES Verified 02/04/22 22:16 Antibiotics) [SULFA (SULFONAMIDE ANTIBIOTICS)] NSAIDS (Non-Steroidal AdvReac Intermediate AFFECTS Verified 02/04/22 22:16 Anti-Inflamma LIVER [NSAIDS (NON-STEROIDAL ENZYMES ANTI-INFLAMMA] [facility] Past Medical History Source: nursing notes reviewed Medical History Appendicitis Mandibular fracture No known health problems Social History Social History Alcohol intake: former Advance Directives: No Advance Directives Information Provided: No Physical Exam Vital Signs: Vital Signs: Last Vital Signs Temp 98.5 F 05/19/22 08:58 Pulse 85 05/19/22 08:58 Resp 18 05/19/22 08:58 BP 146/90 H 05/19/22 08:58 Pulse Ox 100 05/19/22 08:58 O2 Del Method Room Air 05/19/22 08:58 BMI result Body Mass Index 29.9 General appearance no acute distress Head is normocephalic atraumatic Neck is supple Respiratory no distress Abdomen soft nontender Genital exam no lesions Extremities full range of motion x4 Skin no rash Course Course Course Narrative: Patient heard a recent partner may have an STD and wants to be checked so gonorrhea chlamydia testing was done here and he is referred to clinic for HIV and any further testing, he is asymptomatic, UA was normal with no white cells Medical Decision Making Lab Data Labs: Lab Results 05/19/22 Range/Units 09:53 Urine Color Yellow Urine Appearance Clear Urine pH 6.5 (5.0-9.0) Ur Specific [place] <= 1.005 (1.005-1.025) Urine Protein Negative (Neg-Trace) mg/dL Urine Glucose (UA) Negative (Negative) mg/dL Urine Ketones Trace (Negative) mg/dL Urine Blood Negative (Negative) Urine Nitrite Negative (Negative) Ur Leukocyte Esterase Negative (Negative) Discharge Plan Discharge Clinical Impression: Possible exposure to STD Patient Disposition: Home, Self-Care Additional Instructions: You have no symptoms of any sexually transmitted disease right now and it is not certain that your partner had an STD so we are not treating anything right now We will call you with gonorrhea or chlamydia testing is positive Follow with clinic, your given the paper for HIV testing and any further testing Prescriptions: No Action omeprazole 20 mg capsule,delayed release(DR/EC) 1 cap PO QAM prednisone 50 mg tablet 50 mg PO DAILY Qty: 7 0RF
[2022-05-19 10:10] LABS: Appearance Urine Clear; Color Urine Yellow; Glucose Urine UA Negative (Negative); Leukocyte Esterase Urine Negative (Negative); Nitrite Urine Negative (Negative); PH 6.5 (5.0-9.0); Specific Gravity - Urine <= 1.005 (1.005-1.025); Urine Blood Negative (Negative); Urine Ketones Trace mg/dL (Negative); Urine Protein Negative (Neg-Trace)
[2022-05-19 12:06] LABS: CT PCR NOT DETECTED (Not Detect.); NG PCR NOT DETECTED (Not Detect.)
== END 2022-05-19 10:32 | disposition home or self-care (01) ==
PROVIDERS: Emergency Provider Emergency Medicine; PCP Nurse Practitioner Family
DX: Z20.2 Contact with and (suspected) exposure to infections with a predominantly sexual mode of transmission (principal)
CPT/HCPCS: 0353U; 81003; 99283

== ENCOUNTER 2022-07-16 03:52 | Emergency (ER) | payer OTHER, SELFPAY ==
--- NOTE | 2022-07-16 | ECG_ITS ---
Test Reason : PALPITATIONS Blood Pressure : / mmHG Vent. Rate : 075 BPM Atrial Rate : 075 BPM P-R Int : 160 ms QRS Dur : 086 ms QT Int : 380 ms P-R-T Axes : 041 016 027 degrees QTc Int : 424 ms Normal sinus rhythm Normal ECG When compared with ECG of 26-JUN-2020 09:41, QT has lengthened Referred By: Generic ED Physician Electronically Signed By:BIENVENIDO LEVINE
[2022-07-16 04:27] VITALS: BP 137/73; PULSE 81; RESP 18; TEMP 36.6; O2SAT 99; BMI 30.1
[2022-07-16 04:30] LABS: Basophils Percent Auto 0.6 % (0-2); Eosinophils Absolute Auto 0.3 X10*3/uL (0.0-0.4); Eosinophils Percent Auto 4.5 % (0-4); Hematocrit 48.1 % (42.0-52.0); Hemoglobin 16.4 g/dl (14.0-18.0); Imm Gran Abs Auto 0.04 X10*3/uL (0.00-0.03); Imm Gran Pct Auto 0.6 % (0.0-0.4); Lymphocytes Percent Auto 46.2 % (20-40); MANUAL DIFF FLAG NO; Mean Corpuscular HGB Conc 34.1 g/dl (31.0-36.0); Mean Corpuscular Hemoglobin 29.4 pg (27.0-33.0); Mean Corpuscular Volume 86.2 fL (80.0-98.0); Mean Platelet Volume 8.5 fL (9.4-12.4); Monocytes Absolute Auto 0.6 X10*3/uL (0.1-1.2); Monocytes Percent Auto 9.7 % (2-11); Neutrophils Absolute Auto 2.5 x10*3/uL (2.0-8.3); Neutrophils Percent Auto 38.4 % (45-73); Platelet Count 230 X10*3/uL (160-400); Red Blood Count 5.58 X10*6/uL (4.60-5.80); Red Cell Distribution Width 11.7 % (11.0-16.0); White Blood Count 6.4 X10*3/uL (4.8-10.8)
--- NOTE | 2022-07-16 04:39 | ED.ARRPALP ---
HPI - Arrhythmia/Palpitations General Chief Complaint: Arrhythmia/Palpitations Stated Complaint: heart palpitations, possible anxiety Time Seen by Provider: 07/16/22 04:28 Source: patient Mode of arrival: ambulatory Limitations: no limitations History of Present Illness HPI narrative: Patient comes to emergency complaining of palpitations versus anxiety. Patient states that he drank a lot of alcohol prior to going to bed, he woke up feeling anxious and having palpitations. Denies chest pain or shortness of breath. Related Data Home Medications Medication Instructions Recorded Confirmed omeprazole 20 mg capsule,delayed 1 cap PO QAM 05/28/21 05/28/21 release Previous Rx's Medication Instructions Recorded prednisone 50 mg tablet 50 mg PO DAILY #7 tabs 08/17/21 Allergies Allergy/AdvReac Type Severity Reaction Status Date / Time Sulfa (Sulfonamide Allergy Mild HIVES Verified 07/16/22 04:27 Antibiotics) [SULFA (SULFONAMIDE ANTIBIOTICS)] NSAIDS (Non-Steroidal AdvReac Intermediate AFFECTS Verified 07/16/22 04:27 Anti-Inflamma LIVER [NSAIDS (NON-STEROIDAL ENZYMES ANTI-INFLAMMA] Review of Systems Review of Systems: Constitutional : No Weight loss, No Fever, No Chills, No Night Sweats, No Fatigue, No Malaise ENT/Mouth : No Hearing loss, No Ear Pain, No Nasal Congestion, No Sinus Pain, No Hoarseness, No sore throat, No Rhinorrhea, No Swallowing Difficulty Eyes: No Eye Pain, No Swelling, No Redness, No Foreign Body, No Discharge, No Vision Changes Cardiovascular : No Chest Pain, No SOB, No Dyspnea on Exertion, No Orthopnea, No Edema, complaining of Palpitations Respiratory : No Cough, No Sputum, No Wheezing, No Smoke Exposure, No Dyspnea Gastrointestinal : No Nausea, No Vomiting, No Diarrhea, No Constipation, No abdominal Pain, No Hematochezia, No Melena Genitourinary : no irregular bleeding, No Dysuria, No Urinary Frequency, No Hematuria, No Urinary Incontinence, No Urgency, No Flank Pain, No Urinary Flow Changes, No Hesitancy Musculoskeletal : No joint pain, No Myalgias, No Joint Swelling Skin : No Skin Lesions, No rash Neuro : No Weakness, No Numbness, No Paresthesias, No Loss of Consciousness, No Dizziness, No Headache Psych : No Anxiety/Panic, No Depression, No SI/HI/AH/VH, No Social Issues, Heme/Lymph: No Bruising, No Bleeding,No Lymphadenopathy Endocrine : No Polyuria, No Polydipsia, No Temperature Intolerance [facility] Past Medical History Medical History Appendicitis Mandibular fracture No known health problems Social History Social History Alcohol intake: former Advance Directives: No Advance Directives Information Provided: No Physical Exam Vital Signs: Vital Signs: Last Vital Signs Temp 98 F 07/16/22 04:27 Pulse 81 07/16/22 04:27 Resp 18 07/16/22 04:27 BP 137/73 07/16/22 04:27 Pulse Ox 99 07/16/22 04:27 O2 Del Method Room Air 07/16/22 04:27 BMI result Body Mass Index 30.1 Const: Other: Appearance: Alert. Oriented X3. No acute distress. Eyes: Pupils equal, round and reactive to light. ENT: Pharynx normal. Neck: Normal inspection. Neck supple. No lymph nodes noted. No crepitus CVS: Normal heart rate and rhythm. Pulses normal. Normal S1 and S2 Respiratory: No respiratory distress. Breath sounds normal. No Wheezing. No rales Abdomen: Soft and nontender. No rigidity. No distention. Skin: Skin warm and dry. Normal skin color. Normal skin turgor. Extremities: No lower extremity edema. No Lacerations. No Rash Neuro: Oriented X 3. No motor deficit. No sensory deficit. Moving all extremities. No slurred speech. CN 2 through 12 grossly intact Psych: calm, cooperative, normal affect Medical Decision Making Medical Decision Making [facility] Narrative: -my interpretation of EKG: Sinus rhythm, heart rate 75, no ST segment depression or elevation, no T-wave inversion, QTC 424 -troponin negative, on physical exam, patient had regular rhythm, not tachycardic, heart rate in the 80s. -patient likely had anxiety. Patient before discharge Lab Data 07/16/22 04:25 07/16/22 04:25 Labs: Lab Results 07/16/22 07/16/22 07/16/22 Range/Units 04:25 04:25 04:25 WBC 6.4 (4.8-10.8) X10*3/uL RBC 5.58 (4.60-5.80) X10*6/uL Hgb 16.4 (14.0-18.0) g/dl Hct 48.1 (42.0-52.0) % MCV 86.2 (80.0-98.0) fL MCH 29.4 (27.0-33.0) pg MCHC 34.1 (31.0-36.0) g/dl RDW 11.7 (11.0-16.0) % Plt Count 230 (160-400) X10*3/uL MPV 8.5 L (9.4-12.4) fL Immature Gran % (Auto) 0.6 H (0.0-0.4) % Neut % (Auto) 38.4 L (45-73) % Lymph % (Auto) 46.2 H (20-40) % [place] % (Auto) 9.7 (2-11) % Eos % (Auto) 4.5 H (0-4) % Baso % (Auto) 0.6 (0-2) % Lymph # (Auto) 3.0 (1.2-4.9) X10*3/uL [place] # (Auto) 0.6 (0.1-1.2) X10*3/uL Eos # (Auto) 0.3 (0.0-0.4) X10*3/uL Baso # (Auto) 0.0 (0.0-0.2) X10*3/uL Abs Immat Gran (auto) 0.04 H (0.00-0.03) X10*3/uL Absolute Neuts (auto) 2.5 (2.0-8.3) x10*3/uL Absolute Nucleated RBC 0.000 (0.0-0.012) X10*3/uL Nucleated RBC % (auto) 0.0 (0.0-0.2) /100WBC Sodium 138 (135-145) mmol/L Potassium 4.1 (3.3-5.1) mmol/L Chloride 103 (96-108) mmol/L Carbon Dioxide 26 (22-29) mmol/L Anion Gap 13 (12-20) BUN 11 (9-16) mg/dL Creatinine 0.94 (0.5-1.4) mg/dL Estim Creat Clear Calc 140.7 Estimated GFR > 60 Random Glucose 93 (60-115) mg/dL Calcium 9.1 D (8.4-10.2) mg/dL Total Bilirubin 0.4 (0.0-1.0) mg/dL AST 22 (5-37) U/L ALT 22 (0-40) U/L Alkaline Phosphatase 52 (39-117) U/L Troponin I High Sens 2.8 (<3.5-35.0) ng/L Total Protein 6.9 (6.5-8.0) g/dL Albumin 4.3 (3.5-5.0) g/dL Discharge Plan Discharge Clinical Impression: Palpitations Patient Disposition: Home, Self-Care Instructions: Heart Palpitations (ED) Additional Instructions: Please follow-up with your primary care physician tomorrow. If you have any worsening or new symptoms, please return to the emergency room or call 911 Prescriptions: No Action omeprazole 20 mg capsule,delayed release(DR/EC) 1 cap PO QAM prednisone 50 mg tablet 50 mg PO DAILY Qty: 7 0RF
[2022-07-16 04:47] LABS: Alanine Aminotransferase 22 U/L (0-40); Albumin Level 4.3 g/dL (3.5-5.0); Alkaline Phosphatase 52 U/L (39-117); Anion Gap 13 (12-20); Aspartate Amino Transferase 22 U/L (5-37); Bilirubin Total 0.4 mg/dL (0.0-1.0); Blood Urea Nitrogen 11 mg/dL (9-16); Calcium 9.1 mg/dL (8.4-10.2); Carbon Dioxide 26 mmol/L (22-29); Chloride 103 mmol/L (96-108); Creatinine Clr Calc Pharmacy 140.7; Estimated Glomerular Filt Rate > 60; Glucose Random 93 mg/dL (60-115); Potassium 4.1 mmol/L (3.3-5.1); Sodium 138 mmol/L (135-145); Total Protein 6.9 g/dL (6.5-8.0)
[2022-07-16 04:48] LABS: Troponin-I High Sensitivity 2.8 ng/L (<3.5-35.0)
== END 2022-07-16 05:18 | disposition home or self-care (01) ==
PROVIDERS: Emergency Provider Emergency Medicine
DX: R00.2 Palpitations (principal)
CPT/HCPCS: 36415; 80053; 84484; 85025; 93005; 99283

== ENCOUNTER 2022-07-20 17:37 | Emergency (ER) | payer OTHER, SELFPAY ==
--- NOTE | 2022-07-20 17:40 | PC.NURSE ---
PT CALLED AT [phone], NO ANSWER.
[2022-07-20 17:44] VITALS: BP 133/74; PULSE 73; RESP 17; TEMP 36.2; O2SAT 98; BMI 29.9
--- NOTE | 2022-07-20 17:44 | ED.GENADULT ---
HPI - General Adult General Chief complaint: Upper Respiratory Symptoms Stated complaint: Sore throat Time Seen by Provider: 07/20/22 17:59 Source: patient Mode of arrival: ambulatory Limitations: no limitations History of Present Illness HPI narrative: 26-year-old male presents the ER for evaluation of sore throat since last night along with headaches, dry cough, green nasal discharge. Patient denies any fevers or chills. No chest pain or shortness of breath. He reports a history of asthma but has not been wheezing. No known sick contacts. He is able to eat and drink normally but hurts to swallow. complaint: Sore throat and headache Onset (ago): day(s) (1) Location: head and mouth Radiation: non-radiation Severity: moderate Severity scale (1-10): 7 Quality: aching Pain Consistency: constant Relieving factors: none Exacerbating factors: eating Associated symptoms: cough and headaches Treatments prior to arrival: none Related Data Home Medications Medication Instructions Recorded Confirmed omeprazole 20 mg capsule,delayed 1 cap PO QAM 05/28/21 05/28/21 release Previous Rx's Medication Instructions Recorded prednisone 50 mg tablet 50 mg PO DAILY #7 tabs 08/17/21 fluticasone propionate 50 2 spray intranasal DAILY #16 grams 07/20/22 mcg/actuation nasal spray,suspension (Flonase Allergy Relief) ibuprofen 600 mg tablet 600 mg PO Q8H PRN pain #20 tabs 07/20/22 Allergies Allergy/AdvReac Type Severity Reaction Status Date / Time Sulfa (Sulfonamide Allergy Mild HIVES Verified 07/16/22 04:27 Antibiotics) [SULFA (SULFONAMIDE ANTIBIOTICS)] NSAIDS (Non-Steroidal AdvReac Intermediate AFFECTS Verified 07/16/22 04:27 Anti-Inflamma LIVER [NSAIDS (NON-STEROIDAL ENZYMES ANTI-INFLAMMA] Review of Systems Review of Systems: Yes all other systems are reviewed and are negative PMFSH Past Medical History Medical History Appendicitis Mandibular fracture No known health problems Social History Social History Alcohol intake: former Advance Directives: No Advance Directives Information Provided: No Physical Exam ED Vital Signs: Vital Signs - 24 hr 07/20/22 17:44 Temperature 97.2 F Pulse Rate 73 Respiratory Rate 17 Blood Pressure 133/74 Pulse Oximetry 98 Oxygen Delivery Method Room Air BMI result Body Mass Index 29.9 Appearance: Alert. Oriented X3. No acute distress. Head: normocephalic, atraumatic. Eyes: Pupils equal, round and reactive to light. ENT: Pharynx with moderate generalized erythema, No tonsillar swelling or exudate. uvula midline. Handling secretions normally, normal voice. Neck: Normal inspection. Neck supple. CVS: Normal heart rate and rhythm. Pulses normal. Respiratory: No respiratory distress. Breath sounds normal. Skin: Skin warm and dry. Normal skin color. Normal skin turgor. No rashes. Extremities: No lower extremity edema. No joint swelling. Neuro/psych: Oriented X 3. Grossly normal, nonfocal. CN II-XII intact. Normal speech and cognition. Course Course Course Narrative: RME performed by Elba Riley PA-C. Patient is a 26 year old assigned male at presenting to the emergency department with a sore throat. Swabs ordered. Patient placed back in the waiting room pending room availability and results. Medical Decision Making Medical Decision Making [facility] Narrative: 26-year-old male presents to the ER for evaluation of sore throat, green nasal discharge, headaches and dry cough that started last night. His examination is benign, moderate generalized posterior pharynx with erythema but no tonsillar swelling or exudate. He is negative for COVID, flu, strep throat. His symptoms are most likely due to viral etiology. No evidence of peritonsillar abscess or acute bacterial infection. No need for antibiotics at this time. We discussed the diagnosis, supportive care and symptom management. He is stable for discharge home. Differential Diagnosis Differential Diagnoses: The differential diagnosis associated with the presentation includes strep, covid, flu, rsv, other viral syndrome, bronchitis, pneumonia, no evidence of peritonsillar abcsess or retropharyngeal abscess Lab Data [facility] Lab Attestation statement: I reviewed the patient's lab results. Labs: Lab Results 07/20/22 07/20/22 07/20/22 Range/Units 17:56 17:56 17:56 COVID-19 (TIFFANIE) Negative (Negative) COVID-19 Clin Com See Note Influenza Type A (SANDRA) Negative (Negative) Influenza Type B (SANDRA) Negative (Negative) Influenza A & B Note See Note S. pyogenes GrpA SANDRA Negative (Negative) External Record Review External record reviewed: Prior outpatient labs Tests considered The following testing was considered but not selected: Chest x-ray considered but not performed, lungs are clear, saturating well on room air. Prescription Management I considered prescription management with: Antibiotic Chronic Conditions Patient?s care impacted by: Other ( Asthma) Critical Care Time Critical Care Time Critical Care Time: No Discharge Plan Discharge Clinical Impression: Pharyngitis Patient Disposition: Home, Self-Care Instructions: Pharyngitis (ED) Additional Instructions: You tested negative for COVID, flu, and strep throat. Your symptoms are most likely due to another viral cause. Treatment is rest and supportive care. Recommend gargling with salt water 3 times per day. Recommend [id number] Chloraseptic spray and Cepacol lozenges. Take prescribed anti-inflammatory medication as needed for pain. Rest and drink plenty of fluids. Follow-up with your primary care doctor as needed. If you develop new or worsening symptoms call 911 or come back to the ER for further evaluation. Prescriptions: New ibuprofen 600 mg tablet 600 mg PO Q8H PRN (Reason: pain) Qty: 20 0RF fluticasone propionate [Flonase Allergy Relief] 50 mcg/actuation spray,suspension 2 spray intranasal DAILY Qty: 16 0RF Rx Instructions: administer into each nostril No Action omeprazole 20 mg capsule,delayed release(DR/EC) 1 cap PO QAM prednisone 50 mg tablet 50 mg PO DAILY Qty: 7 0RF
[2022-07-20 18:17] LABS: COVID-19 Test Negative (Negative); IDNOW Serial# BCCEAD1C
[2022-07-20 18:19] LABS: IDNOW Serial# 6674DD1D; Strep A Nucleic Acid Negative (Negative)
[2022-07-20 18:20] LABS: IDNOW Serial# 9DB6401D; Influenza A Negative (Negative); Influenza B2 Negative (Negative)
== END 2022-07-20 18:51 | disposition home or self-care (01) ==
PROVIDERS: Physician Assistant Medical; Emergency Provider Internal Medicine
DX: J02.9 Acute pharyngitis, unspecified (principal); Z20.822 Contact with and (suspected) exposure to COVID-19
CPT/HCPCS: 87502; 87635; 87651; 99282; 99283

== ENCOUNTER 2022-09-21 19:29 | Emergency (ER) | payer OTHER, SELFPAY ==
--- NOTE | ~2022-09-21 | XR_ITS ---
EXAMINATION: XR CHEST CLINICAL INFORMATION: Chest pain COMPARISON: 12/25/2018 TECHNIQUE: 2 views of the chest were obtained. FINDINGS: No acute finding. The lung harkins are grossly clear. No infiltrate. There is no effusion. The cardiac silhouette is comparable. The hilar structures do not appear pathologically enlarged. XR/XR chest 2V IMPRESSION: No acute finding.
--- NOTE | 2022-09-21 19:31 | ECG_ITS ---
Test Reason : chest pain Blood Pressure : / mmHG Vent. Rate : 075 BPM Atrial Rate : 075 BPM P-R Int : 154 ms QRS Dur : 084 ms QT Int : 368 ms P-R-T Axes : 039 -01 020 degrees QTc Int : 410 ms Normal sinus rhythm Normal ECG When compared with ECG of 16-JUL-2022 03:59, No significant change was found Referred By: Pia Reddy Electronically Signed By:KERWIN ARNDT MD
[2022-09-21 19:42] VITALS: BP 157/81; PULSE 83; RESP 18; TEMP 36.6; O2SAT 97; BMI 30.1
--- NOTE | 2022-09-21 19:45 | ED.GENADULT ---
HPI - General Adult General Chief complaint: Chest Pain Stated complaint: Shakiness, Chest pain Related Data Home Medications Medication Instructions Recorded Confirmed omeprazole 20 mg capsule,delayed 1 cap PO QAM 05/28/21 05/28/21 release Previous Rx's Medication Instructions Recorded prednisone 50 mg tablet 50 mg PO DAILY #7 tabs 08/17/21 fluticasone propionate 50 2 spray intranasal DAILY #16 grams 07/20/22 mcg/actuation nasal spray,suspension (Flonase Allergy Relief) ibuprofen 600 mg tablet 600 mg PO Q8H PRN pain #20 tabs 07/20/22 Allergies Allergy/AdvReac Type Severity Reaction Status Date / Time Sulfa (Sulfonamide Allergy Mild HIVES Verified 09/21/22 19:47 Antibiotics) [SULFA (SULFONAMIDE ANTIBIOTICS)] NSAIDS (Non-Steroidal AdvReac Intermediate AFFECTS Verified 09/21/22 19:47 Anti-Inflamma LIVER [NSAIDS (NON-STEROIDAL ENZYMES ANTI-INFLAMMA] PMFSH Past Medical History Medical History Appendicitis Mandibular fracture No known health problems Social History Social History Alcohol intake: former Advance Directives: No Advance Directives Information Provided: No Physical Exam ED Vital Signs: Vital Signs - 24 hr 09/21/22 19:42 Temperature 97.9 F Pulse Rate 83 Respiratory Rate 18 Blood Pressure 157/81 H Pulse Oximetry 97 Oxygen Delivery Method Room Air BMI result Body Mass Index 30.1 Course Course Course Narrative: This is a rapid medical exam: Additional HPI, ROS, PE not included below will be deferred to primary provider. 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 Also reports palpitations. Has not taken any OTC medications for his symptoms. Plan: EKG, labs, CXR Discharge Plan Discharge Clinical Impression: Chest pain Patient Disposition: Elopement Prescriptions: No Action omeprazole 20 mg capsule,delayed release(DR/EC) 1 cap PO QAM prednisone 50 mg tablet 50 mg PO DAILY Qty: 7 0RF ibuprofen 600 mg tablet 600 mg PO Q8H PRN (Reason: pain) Qty: 20 0RF fluticasone propionate [Flonase Allergy Relief] 50 mcg/actuation spray,suspension 2 spray intranasal DAILY Qty: 16 0RF Rx Instructions: administer into each nostril Interventions: ED Discharge Assessment Last Done: 09/21/22 22:07 Discharge Date/Time: 09/21/22 22:08
--- NOTE | 2022-09-21 21:44 | PC.NURSE ---
pt called 5 times from 2015 in 5 min inter and pt not present.
== END 2022-09-21 22:08 | disposition left against medical advice (07) ==
PROVIDERS: Emergency Provider Emergency Medicine
DX: R07.89 Other chest pain (principal); Z79.899 Other long term (current) drug therapy
CPT/HCPCS: 71046; 93005; 99283

== ENCOUNTER → 2022-09-21 19:31 | Outpatient (BNV) | payer OTHER, SELFPAY | PROVIDERS: Emergency Provider Emergency Medicine; Visit Provider Internal Medicine Cardiovascular Disease | DX: R07.9 Chest pain, unspecified (principal) | CPT/HCPCS: 93010 ==

== ENCOUNTER 2024-10-23 01:49 | Emergency (ER) | payer OTHER, SELFPAY ==
[2024-10-23 01:59] VITALS: BP 140/90; BP 151/86; PULSE 68; PULSE 70; RESP 16; TEMP 37.3; O2SAT 97; O2SAT 99
--- NOTE | 2024-10-23 02:07 | PC.NURSE ---
Per EMS, pt used cocaine today and made SI statements, pt brought over to Pod by this RN, Review pt criteria with CC Kathrine pt appropriate for POD, Notified RN Bc.
[2024-10-23 02:28] LABS: Appearance Urine Clear; Glucose Urine UA Negative (Negative); PH 6.0 (5.0-9.0); Specific Gravity - Urine <= 1.005 (1.005-1.025)
[2024-10-23 02:28] LABS: MANUAL DIFF FLAG NO
[2024-10-23 02:29] LABS: Hematocrit 46.0 % (42.0-52.0); Hemoglobin 16.3 g/dl (14.0-18.0); Imm Gran Abs Auto 0.06 X10*3/uL (0.00-0.03); Imm Gran Pct Auto 0.6 % (0.0-0.4); Lymphocytes Absolute Auto 2.8 X10*3/uL (1.2-4.9); Mean Corpuscular HGB Conc 35.4 g/dl (31.0-36.0); Mean Corpuscular Hemoglobin 30.4 pg (27.0-33.0); Mean Corpuscular Volume 85.7 fL (80.0-98.0); NRBC Abs Auto 0.000 X10*3/uL (0.0-0.012); NRBC Pct Auto 0.0 /100WBC (0.0-0.2); Platelet Count 223 X10*3/uL (160-400); Red Blood Count 5.37 X10*6/uL (4.60-5.80); White Blood Count 9.8 X10*3/uL (4.8-10.8)
[2024-10-23 02:39] LABS: Cannabinoid Screen Urine Not Detected (Not Detect)
[2024-10-23 02:42] LABS: Alanine Aminotransferase 42 U/L (0-40); Albumin Level 4.6 g/dL (3.5-5.0); Alkaline Phosphatase 47 U/L (39-117); Anion Gap 17 (12-20); Aspartate Amino Transferase 43 U/L (5-37); Blood Urea Nitrogen 11 mg/dL (9-16); Calcium 9.1 mg/dL (8.4-10.2); Carbon Dioxide 21 mmol/L (22-29); Chloride 103 mmol/L (96-108); Creatinine Clr Calc Pharmacy 115.3; Estimated Glomerular Filt Rate > 60; Lipase 36 U/L (8-78); Magnesium 1.9 mg/dL (1.6-2.6); Potassium 3.6 mmol/L (3.3-5.1); Sodium 137 mmol/L (135-145); Total Protein 7.2 g/dL (6.5-8.0)
--- NOTE | 2024-10-23 02:58 | ED_ITS ---
HPI - General Adult General Chief complaint: ETOH/Substance Use Stated complaint: Drug use , SI Statements Time Seen by Provider: 10/23/24 02:58 History of Present Illness ED Provider: Dimitrios MCKEON narrative: The patient is a 28-year-old male who says that he has been drinking and using cocaine. He says he is currently going through a divorce and he thinks that he is using substances more because of this. He says that he called an ambulance today because he was interested in trying to stop using so much alcohol and cocaine. He is interested in going to detox. He was brought here by ambulance. The patient was concerned that he has been placed in the Behavioral Health pod. He is concerned that he was labeled as being suicidal. He is adamant that he is not suicidal and that he never said he was suicidal. He says that he is interested in detox but he does not want to be in a locked portion of the emergency room where he does not have access to his phone. He denies having done anything to harm himself. He denies any history of suicide attempts. He denies any history of psychiatric hospitalizations. He says he has been in detox before and would like to go again. Related Data Home Medications ?Medication ?Instructions ?Recorded ?Confirmed omeprazole 20 mg capsule,delayed 1 cap PO QAM 05/28/21 05/28/21 release Previous Rx's ?Medication ?Instructions ?Recorded prednisone 50 mg tablet 50 mg PO DAILY #7 tabs 08/17 fluticasone propionate 50 2 spray intranasal DAILY #16 grams 07/20/22 mcg/actuation nasal spray,suspension (Flonase Allergy Relief) ibuprofen 600 mg tablet 600 mg PO Q8H PRN pain #20 t abs 07/20/22 Allergies Allergy/AdvReac Type Severity Reaction Status Date / Time Sulfa (Sulfonamide Allergy Mild HIVES Verified 10/23/24 02:15 Antibiotics) (SULFA (SULFONAMIDE ANTIBIOTICS)) NSAIDS (Non-Steroidal AdvReac Intermediate AFFECTS Verified 10/23/24 02:15 Anti-Inflamma (NSAIDS LIVER (NON-STEROIDAL ANTI-INFLAMMA) ENZYMES Review of Systems 2 Review of Systems: Yes all other systems are reviewed and are negative [facility] Past Medical History Medical History Appendicitis Mandibular fracture No known health problems Social History Social History Alcohol intake: former Smoked in Last 30 Days: Yes Use of substances other than those prescribed or required for medical reasons: Yes Substance Use Type: Crack/Cocaine Advance Directives: No Advance Directives Information Provided: Yes Do you have a plan to hurt others: No Plan Physical Exam ED Vital Signs: Vital Signs - 24 hr 10/23/24 01:59 10/23/24 06:10 10/23/24 08:16 Temperature 99.2 F 98.0 F 98 F Pulse Rate 70 76 70 Respiratory Rate 16 12 15 Blood Pressure 151/86 H 120/61 121/75 Pulse Oximetry 97 95 99 Oxygen Delivery Method Room Air Room Air Room Air 10/23/24 09:16 10/23/24 09:33 Temperature 98 F 98 F Pulse Rate 71 71 Respiratory Rate 14 14 Blood Pressure 118/74 118/74 Pulse Oximetry 100 100 Oxygen Delivery Method Room Air Room Air BMI result Body Mass Index 30.0 Const Other: The patient was awake and alert. He had a very intense affect because he was insisting that he was not suicidal. He did not seem ill or in distress otherwise. Orientation/consciousness: patient oriented x3 HENMT Other: The face is symmetrical. ?Mucous membranes moist. Eyes Other: Pupils are round equal, conjunctivae are clear, extraocular movements intact Neck Neck: Yes normal visual inspection and Yes full ROM Resp Effort & Inspection: normal respiratory effort Auscultation: clear to auscultation bilaterally Cardio Rate: regular rate Rhythm: regular rhythm Heart sounds: S1 normal heart sound present and S2 normal heart sound present GI Other: Abdomen is soft and nontender Skin Other: The skin is dry and unremarkable Neuro General: patient oriented x3, gait normal, tone normal, moves all extremities, no focal motor deficits and CN's II-XI intact bilaterally Extrem Other: There is no calf swelling or tenderness. No asymmetry. No peripheral edema. Course Reevaluation(s) Reevaluation #1: The patient was seen by the recovery team later in the morning. The patient had presented hoping to get a detox. He has been here for several hours. He was medically clear. He is not suicidal. Apparently after meeting with the recovery clinician he was interested in discharge. He will be discharged to follow up with the [facility]. Medical Decision Making Medical Decision Making [facility] Narrative: The patient is a 28-year-old male who presented to the emergency room looking for assistance with substance use problems and specifically requesting detox. He has been initially placed in our Behavioral Health pod but he did not wish to remain there because he could not have his phone there. He made it very clear that he was not suicidal and therefore did not want to be kept in such a confined environment. He seemed very earnest in his denial of any suicidality and therefore we moved him out of the pod into a [facility] bed in the main emergency department. The patient seemed much more comfortable there. The patient has been seen by a care team clinician representing a recovery consult. I believe a bed search for a detox bed is under way. The patient is medically clear. The patient will be placed in physician observation. Lab Data 10/23/24 02:23 10/23/24 02:23 Labs: Lab Results 10/23/24 10/23/24 Range/Units 02:20 02:23 WBC 9.8 (4.8-10.8) X10*3/uL RBC 5.37 (4.60-5.80) X10*6/uL Hgb 16.3 (14.0-18.0) g/dl Hct 46.0 (42.0-52.0) % MCV 85.7 (80.0-98.0) fL MCH 30.4 (27.0-33.0) pg MCHC 35.4 (31.0-36.0) g/dl RDW 12.1 (11.0-16.0) % Plt Count 223 (160-400) X10*3/uL MPV 8.3 L (9.4-12.4) fL Immature Gran % (Auto) 0.6 H (0.0-0.4) % Neut % (Auto) 58.7 (45-73) % Lymph % (Auto) 28.2 (20-40) % [place] % (Auto) 10.0 (2-11) % Eos % (Auto) 2.0 (0-4) % Baso % (Auto) 0.5 (0-2) % Lymph # (Auto) 2.8 (1.2-4.9) X10*3/uL [place] # (Auto) 1.0 (0.1-1.2) X10*3/uL Eos # (Auto) 0.2 (0.0-0.4) X10*3/uL Baso # (Auto) 0.1 (0.0-0.2) X10*3/uL Abs Immat Gran (auto) 0.06 H (0.00-0.03) X10*3/uL Absolute Neuts (auto) 5.8 (2.0-8.3) x10*3/uL Absolute Nucleated RBC 0.000 (0.0-0.012) X10*3/uL Nucleated RBC % (auto) 0.0 (0.0-0.2) /100WBC Sodium 137 (135-145) mmol/L Potassium 3.6 (3.3-5.1) mmol/L Chloride 103 (96-108) mmol/L Carbon Dioxide 21 L (22-29) mmol/L Anion Gap 17 (12-20) BUN 11 (9-16) mg/dL Creatinine 0.93 (0.5-1.4) mg/dL Estim Creat Clear Calc 115.3 Estimated GFR > 60 Random Glucose 100 (60-115) mg/dL Calcium 9.1 (8.4-10.2) mg/dL Magnesium 1.9 (1.6-2.6) mg/dL Total Bilirubin 1.0 (0.0-1.0) mg/dL AST 43 H (5-37) U/L ALT 42 H (0-40) U/L Alkaline Phosphatase 47 (39-117) U/L Total Protein 7.2 (6.5-8.0) g/dL Albumin 4.6 (3.5-5.0) g/dL Lipase 36 (8-78) U/L Urine Color Yellow Urine Appearance Clear Urine pH 6.0 (5.0-9.0) Ur Specific [place] <= 1.005 (1.005-1.025) Urine Protein Negative (Neg-Trace) mg/dL Urine Glucose (UA) Negative (Negative) mg/dL Urine Ketones Negative (Negative) mg/dL Urine Blood Negative (Negative) Urine Nitrite Negative (Negative) Ur Leukocyte Esterase Negative (Negative) Urine RBC 0-2 (0-2) /HPF Urine WBC 0-5 (0-5) /HPF Ur Squamous Epith Cells 0-2 (0-2) /HPF Urine Bacteria None Seen (None Seen) Hyaline Casts 0-2 (0-2) /LPF Urine Opiates Screen Not Detected (Not Detect) Ur Buprenorphine Scrn Not Detected (Not Detect) ng/mL Ur Oxycodone Screen Not Detected (Not Detect) ng/mL Urine Methadone Screen Not Detected (Not Detect) ng/mL Urine Fentanyl Screen Not Detected (Not Detect) Ur Barbiturates Screen Not Detected (Not Detect) Ur Phencyclidine Scrn Not Detected (Not Detect) Ur Amphetamines Screen Not Detected (Not Detect) U Benzodiazepines Scrn Not Detected (Not Detect) Urine Cocaine Screen POSITIVE H (Not Detect) U Marijuana (THC) Screen Not Detected (Not Detect) Ethyl Alcohol 118 mg/dL Discharge Plan Discharge Clinical Impression: Substance use disorder Patient Disposition: Home, Self-Care Additional Instructions: Please go to the [facility] here at the [facility]. This is on the 4th floor. Going to the [facility] and help you with potential different options for managing your substance use issues. Please also follow up with any regular primary care doctor you have. If you do not have a primary care doctor please work on trying to get a primary care doctor. Return to the emergency room if significantly worse. Prescriptions: No Action omeprazole 20 mg capsule,delayed release(DR/EC) 1 cap PO QAM prednisone 50 mg tablet 50 mg PO DAILY Qty: 7 0RF ibuprofen 600 mg tablet 600 mg PO Q8H PRN (Reason: pain) Qty: 20 0RF fluticasone propionate [Flonase Allergy Relief] 50 mcg/actuation spray,suspension 2 spray intranasal DAILY Qty: 16 0RF Rx Instructions: administer into each nostril Referrals: [facility] [place] [facility] [Provider Group] Interventions: ED Discharge Assessment Last Done: 10/23/24 09:33 Discharge Date/Time: 10/23/24 09:33 Print Language: Pashto
--- NOTE | 2024-10-23 03:01 | PC.NURSE ---
pt observed on pod cameras pt was to be seen with a cellphone laying on right side and hands in pants moving up and down. security notified who entered room and removed cellphone. MD is currently at bedside. on arrival to pod pt was changed over by security in POD bathroom per oiler helper.
--- NOTE | 2024-10-23 03:11 | PC.NURSE ---
cleared by Dr. Plunkett who states pt does not need 1:1 and would like patient moved to the main ed where he can have his phone/belongings. pt moved to [facility] by security per grinder set up operator thread tool.
--- OUTSIDE RECORDS SUMMARY | 2024-10-23 03:53 | XMS_ITS | Clinical Summary ---
Author Organization [facility] Address [address] [place] [address] Phone Care Team Providers Care Multimedia Engineer Name Role Phone Physician, Pcp Unknown Primary Care Provider Jolanta vailable Allergies Active Allergy Reactions Criticality Noted Date Comments Sulfa (Sulfonamide Antibiotics) Rash 01/25 Medications doxycycline (VIBRAMYCIN) 100 mg capsule Take 1 capsule (100 mg total) by mouth 2 (two) times a day for 10 days. Take with at least 8 ounces (large glass) of water, do not lie down for 30 minutes after. Administer 2 hours before or after multivitamins, antacids, or other products containing polyvalent cations (i.e., calcium, iron, magnesium, selenium, zinc). 20 capsule 5 10/11/19 25 ketorolac (TORADOL) 10 mg tablet Take 1 tablet (10 mg total) by mouth every 6 (six) hours if needed for moderate pain for up to 5 days. 20 tablet 5 10/06/19 25 Encounters Date Type Department Care Team Description 09/30/2024 10:05 PM EDT - 09/30/2024 10:[address] [facility] [address] [place] [address] Puncture wound of left foot, initial encounter (Primary Dx) Discharge Disposition: Home or Self Care from Last 3 Months Immunizations Name Administration Dates Next Due Tdap Tetanus diptheria acell ular pertussis (Boostrix; Adacel) 7yo and older 09/30/2024 Medical History Medical History Date Comments GERD (gastroesophageal reflux disease) Social History Tobacco Use Types Packs/Day Years Used Date Smoking Tobacco: Former Cigarettes Smokeless Tobacco: Never Tobacco Cessation:Counseling Given: Not Answered Alcohol Use Standard Drinks/Week Comments Not Currently 0 (1 standard drink = 0.6 oz pur e alcohol) Sex and Gender Information Value Date Recorded Sex Assigned at Male 03/13/2024 7:01 PM EST Legal Sex Male 12:31 PM EST Gender Identity Male 03/13/2024 7:01 PM EST Sexual Orientation Not on file Obstetrics History Last Filed Vital Signs Vital Sign Reading Time Taken Comments Blood Pressure 121/74 09/30/2024 7:20 PM EDT Pulse 72 09/30/2024 7:20 PM EDT Temperature 36.6 C (97.9 F) 09/30/2024 7:20 PM EDT Respiratory Rate 16 09/30/2024 7:20 PM EDT Oxygen Saturation 99% 09/30/2024 7:20 PM EDT Inhaled Oxygen Concentration - - Weight 97.5 kg (215 lb) 09/30/2024 7:20 PM EDT Height 180.3 cm (5' 11 ) 09/30/2024 7:20 PM EDT Body Mass Index 29.99 09/30/2024 7:20 PM EDT Plan of Treatment Health Maintenance Due Date Last Done Comments Hepatitis B Vaccines (1 of 3 - 19+ 3-dose series) 2013 Cholesterol Screening (Lipid Panel) 01/23/2022 HIV Screening 01/23/2022 Hepatitis C Screening 01/23/2022 Social Influencers of Health Screening 01/23/2022 COVID-19 Vaccine ( season) 2023 Depression Screening 02/26/2024 Influenza Vaccine (#1) 2024 , 02/06/2019, 03/31/2018, Additional history exists DTaP,Tdap,and Td Vaccines (4 - Td or Tdap) 09/30/2034 09/30/2024, 01/20/2023, 01/14/2017 HIB Vaccines Aged Out No longer eligi ble based on patient's age to complete this topic HPV Vaccines Aged Out No longer eligi ble based on patient's age to complete this topic Hepatitis A Vaccines Aged Out No long er eligible based on patient's age to complete this topic IPV Vaccines Aged Out No longer eligi ble based on patient's age to complete this topic MMR Vaccines Aged Out No longer eligi ble based on patient's age to complete this topic Meningococcal ACWY Vaccine Aged Out N o longer eligible based on patient's age to complete this topic Meningococcal B Vaccine Aged Out No l onger eligible based on patient's age to complete this topic Pneumococcal Vaccine: Pediatrics (0 to 5 Years) and At-Risk Patients (6 to 49 Years) Aged Out No longer eligible based on patient's age to complete this topic RSV Immunization Patients Under 20 months Aged Out No longer eligible based on patient's age to complete this topic Varicella Vaccines Aged Out No longer eligible based on patient's age to complete this topic Procedures Procedure Name Priority Date/Time Associated Diagnosis Comments XR FOOT 3+ VIEWS LEFT STAT 09/30/2024 7:31 PM EDT from Last 3 Months Results * XR Foot 3+ Views Left (09/30/2024 7:31 PM EDT) Anatomical Region Laterality Modality Lower Extremities, Foot Left [facility] 10/01/2024 8:14 AM EDT Impressions 10/01/2024 8:15 AM EDT No foot fracture or dislocation. [id number] -------- FINAL REPORT -------- Dictated By: Marla Mcdowell Dictated Date: 10/01/2024 08:14 ET Assigned Physician: Marla Mcdowell Reviewed and Electronically Signed By: Marla Mcdowell Signed Date: 10/01/2024 08:15 ET Workstation ID: [id number] Transcribed By: Self Edit Transcribed Date: 10/01/2024 08:14 ET Narrative 10/01/2024 8:15 AM EDT INDICATION: Foot pain with possible foreign body. FINDINGS: 3 views of the left foot were obtained. No prior studies available for comparison. No fracture or dislocation. No focal bony lesion. No soft tissue swelling, gas or radiopaque foreign. Procedure Note Marla Mcdowell MD - 10/01/2024 INDICATION: Foot pain with possible foreign body. FINDINGS: 3 views of the left foot were obtained. No prior studiesavailable for comparison. No fracture or dislocation. No focal bony lesion. No soft tissue swelling, gas or radiopaque foreign. IMPRESSION: No foot fracture or dislocation. [id number] -------- FINAL REPORT -------- Dictated By: Marla Mcdowell Dictated Date: 10/01/2024 08:14 ET Assigned Physician: Marla Mcdowell Reviewed and Electronically Signed By: Marla Mcdowell Signed Date: 10/01/2024 08:15 ET Workstation ID: [id number] Transcribed By: Self Edit Transcribed Date: 10/01/2024 08:14 ET us Kobi Tomlinson MD IMG XR PROCEDURES Final Result from Last 3 Months Insurance [employer] [place] [employer] Care Teams Multimedia Engineer Relationship Specialty Start Date End Date Physician, Pcp Unknown PCP - General 09/30/24
[2024-10-23 06:10] VITALS: BP 120/61; PULSE 76; RESP 12; TEMP 36.7; O2SAT 95
[2024-10-23 08:16] VITALS: BP 121/75; PULSE 70; RESP 15; TEMP 36.6; O2SAT 99
[2024-10-23 09:16] VITALS: BP 118/74; PULSE 71; RESP 14; TEMP 36.6; O2SAT 100
[2024-10-23 09:33] VITALS: BP 118/74; PULSE 71; RESP 14; TEMP 36.6; O2SAT 100
== END 2024-10-23 09:33 | disposition home or self-care (01) ==
PROVIDERS: Emergency Provider Emergency Medicine
DX: F19.90 Other psychoactive substance use, unspecified, uncomplicated (principal)
CPT/HCPCS: 36415; 80053; 80307; 81001; 83690; 83735; 85025; 99284; S9485